=== PATIENT | male | born 1940 | race Caucasian/White ===

== ENCOUNTER → 2016-11-18 08:34 | Outpatient (CLI) | payer MEDICARE, OTHER ==
--- NOTE | ~2016-11-18 | EEG ---
PATIENT:ESTHER BRANHAM DATE OF SERVICE: 11/18/16 MEDICAL RECORD: [id number] DATE OF : 42 LOCATION: [facility] ADMISSION DATE: 11/18/16 REFERRING PHYSICIAN: INTERPRETING PHYSICIAN: NERY MISTRY MD DATE OF SERVICE: 11/18/2016 REFERRED BY: Dr. Lee as an outpatient. ELECTROENCEPHALOGRAM NUMBER: [id number]. DATE OF EXAMINATION: 11/18/2016 at 11:10 a.m. TECHNICAL DATA: This electroencephalographic recording consists of approximately 20 minutes of data collection utilizing the international 10/20 system of electrode placement and both referential and non-referential montages. Sixteen channels of electrocerebral recording are accompanied by a 17th channel dedicated to the electrocardiographic rhythm and 2 channels of electromyographic recording. Recording is performed in the awake and drowsy states utilizing activation by photic stimulation. ELECTROENCEPHALOGRAPHIC DATA: The awake state comprises approximately 70% of the recorded electrocerebral activity. Electromyographic artifact is prominent and rapid eye movements are seen. The posterior dominant background consists of a well-developed, symmetric, rhythmic, waxing and waning alpha activity of 7-8 Hz, which is suppressed by eye opening. The drowsy state comprises the remaining portion of the recorded electrocerebral activity. Electromyographic artifact is diminished and rapid eye movements are not seen. The posterior dominant background is occasionally relatively suppressed. No abnormal or focal slowing is identified. No epileptiform discharges are seen. Photic stimulation induces no abnormal change in the recorded electrocerebral activity. INTERPRETATION: Normal (awake and drowsy). This is a normal electroencephalographic recording. TRANSINT:[id number] Voice Confirmation ID: [id number] DOCUMENT ID: [id number] NERY MISTRY MD CC: [id number] DICTATION DATE: 11/19/16 1146 HAND OUTSIDE CUTTER: 11/19/168 DEP CLI 11/18/16 [facility] [address] [place] [address]
== END | disposition home or self-care (01) ==
LOC: D.CN 10-21 09:00 → D.ECHO 10-21 09:30 → D.CN 10-21 10:00 → D.US 10-21 11:00 → D.CT 10-21 11:30 → D.CN 08:34
DX: G40.101 Localization-related (focal) (partial) symptomatic epilepsy and epileptic syndromes with simple partial seizures, not intractable, with status epilepticus (principal); G45.9 Transient cerebral ischemic attack, unspecified; I48.91 Unspecified atrial fibrillation; R94.31 Abnormal electrocardiogram [ECG] [EKG]

== ENCOUNTER → 2016-12-09 09:30 | Outpatient (CLI) | payer MEDICARE, OTHER | END | disposition home or self-care (01) | LOC: D.CT 09:30 | DX: I48.91 Unspecified atrial fibrillation (principal); I65.29 Occlusion and stenosis of unspecified carotid artery ==

== ENCOUNTER → 2016-12-30 08:25 | Outpatient (CLI) | payer MEDICARE, OTHER ==
--- NOTE | ~2016-12-30 | EC ---
PATIENT:ESTHER BRANHAM DATE OF SERVICE: 12/30/16 SEX: M MEDICAL RECORD: [id number] DATE OF : 42 LOCATION:D[facility] AGE OF PATIENT: 76 ADMISSION DATE: 12/30/16 REFERRING PHYSICIAN: INTERPRETING PHYSICIAN: MARIANNA MCLEOD MD ECHOCARDIOGRAM REPORT ECHO CHARGES 4 ECHO COMPLETE CLINICAL DIAGNOSIS: CHEST PAIN HX OF AFIB ECHOCARDIOGRAPHIC MEASUREMENTS (adult normal given) AC root (d.<3.7cm) 3.7 cm LV Septum d (<1.2 cm> 1.7 cm Valve Excursion 1.8 cm LV Septum (systole) 1.9 cm Left Atria (s.<4.0cm> 4.1 cm LVPW d(<1.2cm) 1.2 cm RV (d.<2.3cm) 4.6 cm LVPW (sytole) 16 cm LV diastole(<5.6CM) 5.3 cm MV E-F(>70mm/sec) cm LV systole 3.4 cm LVOT Diameter 1.9 cm MV exc.(>10mm) 2.1 cm Est.ejection fraction (50-75%) % Pericardial Effusion N DOPPLER: LVIT cm/sec A 37.0 cm/sec E 99.0 cm/sec LA cm/sec RVSP 34 mmHg LVOT 92 cm/sec AOP1/2T m/s Asc. Ao 125 cm/sec RVOT 78 cm/sec RA cm/sec PA 102 cm/sec AV Gradient Peak 6.24 mmHg AV Mean 3.48 mmHg AV Area 2.3 cm MV Gradient Peak 4.45 mmHg MV Mean 2.19 mmHg MV Area cm COMMENTS: Practice Director: 2 SAI LING Hardware Installation Coordinator: 4 Dr. Mcleod TAPE# PACS DATE OF SERVICE: 12/30/2016 PROCEDURE: Transthoracic echocardiogram. FINDINGS: 1. The left ventricle shows mild concentric left ventricular hypertrophy. The overall ejection fraction is 60%. There is no regional wall motion abnormality. 2. The right ventricle is moderate to severely dilated; however, it appears to have normal function. 3. The left atrium is mildly dilated. ECHOCARDIOGRAM REPORT [id number] ESTHER BRANHAM 4. The mitral valve is shown to be structurally normal with mild mitral regurgitation. Inflow characteristics are unable to be calculated because of the patient's presence of atrial fibrillation. 5. The tricuspid valve has mild tricuspid regurgitation. The right ventricular systolic pressure is normal. 6. The IVC is shown to be normal in size and collapses appropriately, indicating likely normal central venous pressure. 7. The right atrium is moderately to severely dilated. 8. The aortic root is a normal trileaflet structure. 9. The pericardium is normal. CONCLUSION: The patient has evidence of mild hypertensive heart disease. The patient is in atrial fibrillation and has mild enlargement of the right-sided structures. TRANSINT:[id number] Voice Confirmation ID: [id number] DOCUMENT ID: [id number] MARIANNA MCLEOD MD CC: [id number] DICTATION DATE: 12/30/16 1541 TRIMMER OPERATOR: 12/30/16 1938 [facility] [address] [place] [address]
== END | disposition home or self-care (01) ==
LOC: D.ECHO 08:25
DX: R07.9 Chest pain, unspecified (principal); I48.2 Chronic atrial fibrillation; G45.9 Transient cerebral ischemic attack, unspecified

== ENCOUNTER 2017-01-21 06:36 | Outpatient (CLI) | payer MEDICARE, OTHER ==
--- NOTE | ~2017-01-21 | HEMODYNAMI ---
PATIENT:ESTHER BRANHAM MEDICAL RECORD: [id number] : 42 LOCATION:[facility] ADMISSION DATE: 01/21/17 Generatedon:01/21/20179:15 Patient name: ESTHER BRANHAM Patient #: [id number] SSN: : Date of study: 01/21/2017 Page: Of Hemodynamic Procedure Report Patient Data Patient Demographics Procedure consent was obtained First Name: ESTHER Gender: Male Last Name: YONAS : 1940 Middle Initial: A Age: 76 year(s) Patient #: [id number] Race: Unknown Additional ID: [id number] Contact details [address]: [address] [place] [address] State: [place] City: [place] Zip code: [address] Past Medical History Allergies Allergen Reaction Date Comments Reported Other allergy 01/21/2017 [facility] Admission Admission Data Admission Date: 01/21/2017 Admission Time: 6:36 Admit Source: Other Lab Results Lab Result Date: 01/21/2017 Lab Result Time: 7:00 Biochemistry Name Units Result Min Max BUN mg/dl 19 --(----)*- 7 18 Creatinine mg/dl 1.4 --(----)*- 0.6 1.3 CBC Name Units Result Min Max Hematocrit % 50.8 --(--*-)-- 42 54 Hemoglobin g/dl 17.1 --(---*)-- 13.5 17.5 Procedure Procedure Types Cath Procedure Diagnostic Procedure LHC LHC w/Coronaries PCI Procedure Coronary Stent Initial Miscellaneous Procedures Moderate Sedation up to 30 minutes Procedure Description Procedure Date Procedure Date: 01/21/2017 Procedure Start Time: 8:41 Procedure End Time: 9:12 Procedure Staff Name Function Rodger Mcleod MD Performing Physician Irena Swenson RT Scrub Liv Richard RN Nurse Seth Dacosta RT Monitor Procedure Data Cath Procedure Fluoroscopy Diagnostic fluoroscopy Total fluoroscopy Time: time: 10.8 min 10.8 min Diagnostic fluoroscopy Total fluoroscopy dose: dose: 477.54 mGy 477.54 mGy Contrast Material Contrast Material Type Amount (ml) Isovue 300 126 Entry Location Entry Primary Successful Side Size Upsize Upsize Entry Closure Cabrera ccessful Closure Location (Fr) 1 (Fr) 2 (Fr) Remarks Device Remarks Radial Right 6 Fr Mechanical artery Short Compression Estimated blood loss: 10 ml Diagnostic catheters Device Type Used For End Catheter Placement Diagnostic Infinity 5Fr Procedure AR MOD Catheter Procedure Complications No complications Procedure Medications Medication Administration Route Dosage Oxygen NC 2 l/min Lidocaine 2% added to field 20 Heparin Flush Bag added to field 2 bags (1000units/500ml NS) 0.9% NaCl I.V. 100 ml/hr Radial Cocktail added to field 1 syringe (Verapomil 2mg/Nitro 400mcg/Heparin 1500units) Versed I.V. 1 mg Fentanyl I.V. 50 mcg Radial Cocktail I.A. 1 syringe (Verapomil 2mg/Nitro 400mcg/Heparin 1500units) Angiomax (bolus) I.V. 13.5 ml Angiomax Drip I.V. drip 31.9 ml/hr (250mg/50ml NS) (Standard) Plavix P.O. 300 mg Angiomax Drip 31.9 ml/hr (250mg/50ml NS) (Standard) Hemodynamics Rest HGB: 17.1 (g/dl) Heart Rate: 71 (bpm) Pressure Samples Time Site Value (mmHg) Purpose Heart Use Rate(bpm) 8:51 LV 136/1,14 EDP 80 8:52 AO 123/79(99) Pullback 73 8:52 LV 114/15,16 Pullback 73 Gradients Valve Time Site 1 Site 2 Mean SEP/DFP Peak To Heart Use (mmHg) (sec/min) Peak Rate (mmHg) (bpm) Aortic 8:52 LV AO 0 12 0 73 114/15,16 123/79(99) Calculations Valve P-P Mean Valve Index Valve Source Name Gradient Area Flow (cm2) Aortic 0 0 0 0 Snapshots Pre Cath Intra NCS Post Cath Vital Signs Time Heart Resp SPO2 etCO2 NIBP (mmHg) Rhythm Pain Sedation Rate (ipm) (%) (mmHg) Status Level (bpm) 8:34:32 74 22 100 29.4 147/96(131) A-Fib 0 (11) 10(A) , No pain 8:38:56 72 17 98 30.2 147/98(128) A-Fib 0 (11) 10(A) , No pain 8:43:16 75 15 96 13.5 133/78(108) A-Fib 0 (11) 10(A) , No pain 8:47:38 74 16 95 0 119/79(97) A-Fib 0 (11) 9(A) , No pain 8:52:00 70 15 96 0 129/80(107) A-Fib 0 (11) 9(A) , No pain 8:56:20 71 15 96 0 132/83(98) A-Fib 0 (11) 9(A) , No pain 9:00:34 76 16 96 0 130/82(122) A-Fib 0 (11) 9(A) , No pain 9:04:48 70 15 97 21.9 132/85(107) A-Fib 0 (11) 9(A) , No pain 9:09:07 64 16 97 34 146/81(124) A-Fib 0 (11) 10(A) , No pain Medications Time Medication Route Dose Verified Delivered Reason Notes Effectiveness by by 8:32:41 Oxygen NC 2 l/min Rodger Buffie used for Shani Richard RN procedure 8:32:48 Lidocaine 2% added to field 20ml Rodger Rodger for local vial Shani Mcleod MD anesthetic 8:32:55 Heparin Flush added to field 2 bags Rodger Rodger used for Bag Shani Mcleod MD procedure (1000units/500ml NS) 8:33:06 0.9% NaCl I.V. 100 Rodger Buffie Per physic afshin ml/hr Shani Richard RN, MD 8:33:33 Radial Cocktail added to field 1 Rodger Buffie for (Verapomil syringe Shani Richard RN vasodilation 2mg/Nitro MD 400mcg/Heparin 1500units) 8:39:51 Versed I.V. 1 mg Rodger Buffie for sedati on Shani Richard RN, MD 8:39:57 Fentanyl I.V. 50 mcg Rodger Buffie for sedati on Shani Richard RN, MD 8:42:39 Radial Cocktail I.A. 1 Rodger Rodger for (Verapomil syringe Shani Mcleod MD vasodilation 2mg/Nitro MD 400mcg/Heparin 1500units) 9:02:27 Angiomax (bolus) I.V. 13.5 ml Rodger Buffie for Shani Richard RN anticoagulation 9:04:07 Angiomax Drip I.V. drip 31.9 Rodger Buffie for (250mg/50ml NS) ml/hr Shani Richard RN anticoagulation (Standard) 9:12:57 Plavix P.O. 300 mg Rodger Buffie for Shani Richard RN antiplatelet MD therapy 9:13:09 Angiomax Drip I.V. 31.9 Rodger Buffie for (250mg/50ml NS) drip-discontinued ml/hr Shani Richard RN anticoagulation (Standard) Procedure Log Time Note 8:16:13 Admit Source: Other 8:16:14 Diagnostic Cath status Elective 8:16:16 Irena Counts RT(R) sent for patient. Start room use. 8:16:17 Time tracking: Regular hours 8:16:20 Plan of Care:Hemodynamics will remain stable., Cardiac rhythm will remain stable., Comfort level will be maintained., Respiratory function will remain adequate., Patient/ family verbilizes understanding of procedure., Procedure tolerated without complication., Recovers from procedure without complications.. 8:16:36 H&P Date Dictated: 01/15/2017 Within 30 days and on chart., H&P Addendum completed by physician on day of procedure. (MUST COMPLETE FOR ALL OUTPATIENTS). 8:17:52 Lab Result : BUN 19 mg/dl 8:17:52 Lab Result : Creatinine 1.4 mg/dl 8:17:52 Lab Result : Hemoglobin 17.1 g/dl 8:17:52 Lab Result : Hematocrit 50.8 % 8:17:55 Lab results completed and on chart. 8:18:05 Patient received from Pre/Post Procedure Room to CCL 3 Alert and oriented. Tansferred to table in Supine position. 8:18:06 Warm blankets applied, and tori hugger turned on for patient comfort. 8:18:07 Correct patient and procedure confirmed by team. 8:18:08 Signed procedure consent form obtained from patient. 8:18:09 ECG and BP/O2 sat monitors applied to patient. 8:18:10 Pre-procedure instructions explained to patient. 8:18:11 Pre-op teaching completed and patient verbalized understanding. 8:18:12 Family in waiting room. 8:18:13 Patient NPO since Midnight. 8:32:41 Oxygen 2 l/min NC was administered by Liv Richard RN; used for procedure; 8:32:48 Lidocaine 2% 20ml vial added to field was administered by Rodger Mcleod MD; for local anesthetic; 8:32:55 Heparin Flush Bag (1000units/500ml NS) 2 bags added to field was administered by Rodger Mcleod MD; used for procedure; 8:33:06 0.9% NaCl 100 ml/hr I.V. was administered by Liv Richard RN; Per physician; 8:33:10 Vital chart was started 8:33:33 Radial Cocktail (Verapomil 2mg/Nitro 400mcg/Heparin 1500units) 1 syringe added to field was administered by Liv Richard RN; for vasodilation; 8:37:42 Patient allergic to Other allergyNKDA 8:37:44 Is the patient allergic to Iodine/contrast media? No. 8:37:45 Is patient on blood thinner?Yes 8:37:47 ACC The patient was administered the following blood thiners within the last 24 hours: ACCPlavix 8:37:53 Patient diabetic? No. 8:37:55 Previous problem with sedation/anesthesia? No ? 8:37:56 Snore? Yes 8:37:56 Sleep apnea? No 8:37:57 Deviated septum? No 8:37:58 Opens mouth fully? Yes 8:37:58 Sticks out tongue? Yes 8:38:00 Airway obstruction? No ? 8:38:01 Dentures? No ? 8:38:04 Modified Travis's test Ulnar < 7 seconds 8:38:06 Patient pain scale 0/10 ?. 8:38:09 IV patent on arrival in left forearm with 0.9% NaCl at O. 8:38:13 Right Radial & Right Groin area was prepped with chlora-prep and draped in sterile fashion 8:38:14 Alarms reviewed by R. N. 8:38:14 Sharps counted by scrub and verified by R.N. 8:38:18 Use device set Radial Dx 8:38:19 Tegaderm 4 x 4 opened to sterile field. 8:38:20 Acist Manifold opened to sterile field. 8:38:20 Acist Hand Control opened to sterile field. 8:38:21 Acist Syringe opened to sterile field. 8:38:21 Medline Cath Pack opened to sterile field. 8:38:22 Bag Decanter opened to sterile field. 8:38:22 Terumo 6Fr Slender Glidesheath opened to sterile field. 8:38:22 St Peter 260cm J .035 wire opened to sterile field. 8:38:27 Baseline sample Acquired. 8:38:30 Physician arrived 8:38:30 --------ALL STOP TIME OUT------ 8:38:30 Final Timeout: patient, procedure, and site verified with staff and physician. All members of the team are in agreement. 8:38:32 Right Radial & Right Groin site verified by team. 8:38:33 Physical assessment completed. ASA score P 2 - A patient with mild systemic disease as per Rodger Mcleod MD. 8:38:36 Sedation plan: IV Moderate Sedation Versed, Fentanyl 8:39:51 Versed 1 mg I.V. was administered by Liv Richard RN; for sedation; 8:39:57 Fentanyl 50 mcg I.V. was administered by Liv Richard RN; for sedation; 8:41:09 Zero performed for pressure channel P1 8:41:26 Rhythm: atrial fibrillation 8:41:33 Procedure started. 8:41:33 Full Disclosure recording started 8:41:37 Local anesthetic to right radial artery with Lidocaine 2% by Rodger Mcleod MD.INITIAL ACCESS ONLY 8:41:44 A 6 Fr Short sheath was inserted into the Right Radial artery 8:42:39 Radial Cocktail (Verapomil 2mg/Nitro 400mcg/Heparin 1500units) 1 syringe I.A. was administered by Rodger Mcleod MD; for vasodilation; 8:43:29 St Peter 260cm J .035 wire opened to sterile field. 8:44:24 LCA angiography performed. 8:51:18 LV hemodynamics recorded. 8:51:19 LV gram done using POLLACK 8:51:21 Injector settings: Ml/sec: 5, Volume: 10, 8:52:39 EF : 65 % 8:54:01 Catheter exchanged over wire. 8:54:04 A Diagnostic Infinity 5Fr AR MOD Catheter was advanced over the wire and used for Procedure. 8:56:02 RCA angiography performed. 8:59:03 Catheter removed. 8:59:15 Medtronic Launcher 6Fr EBU 3.5 guide catheter opened to sterile field. 8:59:52 Copilot Bleedback Control Valve opened to sterile field. 8:59:53 [place] LiveOps Choice PT Extra Support 182cm wire opened to sterile field. 8:59:53 Merit BasixCompak Inflation Kit opened to sterile field. 9:00:05 6 Fr ebu 3.5 guide catheter was inserted over the wire 9:02:27 Angiomax (bolus) 13.5 ml I.V. was administered by Liv Richard RN; for anticoagulation; 9:02:31 PT ES wire advanced. 9:04:03 Wire advanced across lesion. 9:04:07 Angiomax Drip (250mg/50ml NS) (Standard) 31.9 ml/hr I.V. drip was administered by Liv Richard RN; for anticoagulation; 9:06:11 Inflation Number: 1 A Daniele RX 3.5 x 26 stent was prepped and advanced across the Mid LAD. The stent was deployed at 14 ASHA for 0:10 (min:sec). 9:07:27 Stent catheter was removed intact over wire. 9:07:27 Wire removed. 9:07:28 Guide catheter removed. 9:07:35 Terumo TR Band Large opened to sterile field. 9:07:43 Sheath removed intact; hemostasis achieved with Mechanical Compression to the Right Radial artery. 9:07:46 Procedure ended.(Physican Out) 9:10:29 Fluoroscopy time 10.80 minutes. 9:10:35 Flurop Dose total: 477.54 9:10:35 Fluoroscopy dose: 477.54 mGy 9:10:39 Contrast amount:Isovue 300 126ml. 9:10:40 Sharps counted by scrub and verified by R.N. 9:10:42 TR band inflated with 12cc of air. 9:10:43 Insertion/operative site no bleeding no hematoma. 9:10:47 Post Procedure Pulses reassessed and unchanged 9:10:49 Post-procedure physical assessment completed. ASA score P 2 - A patient with mild systemic disease as per Rodger Mcleod MD. 9:10:59 Post procedure rhythm: unchanged. 9:11:09 Estimated blood loss: 10 ml 9:11:10 Post procedure instruction explained to patient.Patient verbalizes understanding. 9:11:10 Patient needs reinforcement of post procedure teaching. 9:11:27 Procedure type changed to Cath procedure, Diagnostic procedure, LHC, LHC w/Coronaries, PCI procedure, Coronary Stent Initial, Miscellaneous Procedures, Moderate Sedation up to 30 minutes 9:11:54 Procedure and supply charges have been captured, reviewed, submitted and are correct. 9:11:57 Procedure Complication : No complications 9:11:58 Vital chart was stopped 9:11:59 See physician's report for complete and final results. 9:12:00 Report given to Pre/Post Procedure Room. 9:12:02 Patient transfered to Pre/Post Procedure Room with Stretcher. 9:12:04 Procedure ended. 9:12:04 Full Disclosure recording stopped 9:12:14 End room use (Document Last) 9:12:57 Plavix 300 mg P.O. was administered by Liv Richard RN; for antiplatelet therapy; 9:13:09 Angiomax Drip (250mg/50ml NS) (Standard) 31.9 ml/hr I.V. drip-discontinued was administered by Liv Rihcard RN; for anticoagulation; Intervention Summary Intervention Notes Time ActionType Lesion and Equipment Action# Pressure Duration Attributes Used 9:06:11 Place stent Mid LAD Daniele RX 1 14 00:10 3.5 x 26 stent Device Usage Item Name Manufacture Quantity Catalog Number [facility] Part Current [facility] Lot# / Charge Number Stock Stock Serial# Code Tegaderm 4 3M 1 [id number] [id number] 706297 5 x 4 Acist Acist 1 77724 647777 298924 710265 5 Manifold Medical Systems Inc Acist Hand Acist 1 50252 252375 681656 117650 5 Control Medical Systems Inc Acist Acist 1 99559 407192 303897 142615 20 Syringe Medical Systems Inc Medline Cardinal 1 [id number] 709775 45523 978529 5 Cath Pack Health Bag Microtek 1 2001S 713138 95548 681428 5 DecFloq. Terumo 6Fr Terumo 1 [id number] 986711 117941 881352 [address] [facility] [address] [facility] 2 037258 816800 195798 620589 30 260cm J .035 wire Diagnostic Cardinal 1 [id number] 622443 749399 188063 15 Screenleap Health 5Fr AR MOD Catheter Medtronic Medtronic 1 [id number] 537340 41347 270275 3 Launcher 6Fr EBU 3.5 guide catheter Copilot Chopra 1 [id number] 262126 354531 971745 5 Bleedback Vascular Control Valve [place] Sci [place] 1 [id number] 519884 895887 463050 5 Choice PT Scientific Extra Support 182cm wire Merit Merit 1 [id number] 710976 742321 294378 15 [employer] Medical Inflation Kit Gracey RX 3.5 Medtronic 1 [id number] 899230 2703093 596909 5 [id number] x 26 stent Terumo TR Terumo 1 [id number] 724748 176843 497452 40 Band Large Signature Audit Alexander Stage Time Signature Unsigned Intra-Procedure 01/21/2017 Seth Dacosta 9:15:01 AM RT(R) Signatures Monitor : Seth Dacosta RT Signature : Date : Time : [place] [id number] SAUMYA CORTEZ, TAMMY [address]
[2017-01-21] MEDS ORDERED: FARXIGA10 MG PO (06:47)
[2017-01-21] MEDS ORDERED: BAYER CHEWABLE81 MG PO (06:48)
[2017-01-21] MEDS ORDERED: ELIQUIS2.5 MG PO (06:48)
[2017-01-21 06:59] VITALS: BP 181/97; BMI 28.7
[2017-01-21 08:00] LABS: ANION GAP 16.2 mmol/L (8-16); CALCIUM 9.2 mg/dL (8.5-10.1); CARBON DIOXIDE 24.7 mmol/L (21.0-32.0); CREATININE - SERUM 1.4 mg/dL (0.6-1.3); POTASSIUM - SERUM 3.9 mmol/L (3.5-5.1)
[2017-01-21 08:09] LABS: EOSINOPHILS 1.7 % (0-7); HEMATOCRIT 50.8 % (42.0-54.0); HEMOGLOBIN 17.1 g/dL (13.5-17.5); IMMATURE GRANULOCYTES 0.3 % (0-5); LYMPHOCYTES 18.9 % (15-50); MCH 30.6 pg (26.0-34.0); MCHC 33.7 g/dL (31.0-37.0); MEAN PLATELET VOLUME 9.6 fL (7.4-10.4); MONOCYTES 12.1 % (2-11); PLATELET COUNT 279 10x3/uL (130-400); RBC 5.58 10x6/uL (4.20-6.10); RDW 13.1 % (11.5-14.5); WBC 6.3 10x3/uL (4.8-10.8)
--- NOTE | 2017-01-21 09:40 | NUR ---
2L NC, NO RESP DISTRESS. RIGHT WRIST TR BAND CDI, NO BLEEDING OR HEMATOMA NOTED. NO C/O NAUSEA OR CHEST PAIN. VSS. AT BEDSIDE, CALL LIGHT WITHIN REACH.
[2017-01-21] MEDS ORDERED: PLAVIX75 MG PO (09:55)
--- NOTE | 2017-01-21 10:10 | NUR ---
2L NC, NO RESP DISTRESS. RIGHT WRIST TR BAND CDI, NO BLEEDING OR HEMATOMA NOTED. NO C/O PAIN OR NAUSEA. SANDWICH TRAY AND DRINK GIVEN. AT BEDSIDE, CALL LIGHT WITHIN REACH.
--- NOTE | 2017-01-21 10:25 | NUR ---
RESTING QUIETLY WITH EYES CLOSED. RIGHT WRIST TR BAND CDI, NO BLEEDING OR HEMATOMA NOTED. NO C/O PAIN OR NAUSEA. 2L NC, NO RESP DISTRESS NOTED. VSS. WILL CONTINUE TO MONITOR.
--- NOTE | 2017-01-21 10:44 | NUR ---
1040 PT DENIES ANY C/O CHEST PAIN OR NAUSEA. HAS KATHARINE SANDWICH AND PO FLUIDS. TR BAND IS CDI, NO BLEEDING OR HEMATOMA NOTED. A-FIB WITH RATE OF 76. FAMILY AT BEDSIDE, CALL LIGHT IS IN REACH. PT DENIES NEEDS AT THIS TIME.
--- NOTE | 2017-01-21 11:40 | NUR ---
1140 PT HAS VOIDED 600 CC CLEAR YELLOW URINE USING URINAL. DENIES ANY C/O AT THIS TIME. TR BAND CDI, NO BLEEDING OR HEMATOMA NOTED.
--- NOTE | 2017-01-21 12:09 | NUR ---
PT DENIES ANY C/O. NO BLEEDING OR HEMATOMA NOTED AT CATH SITE. A-FIB WITH RATE OF 64. PT DENIES ANY C/O CHEST DISCOMFORT FAMILY AT BEDSIDE, CALL LIGHT IN REACH.
--- NOTE | 2017-01-21 12:30 | NUR ---
1230 3 CC OF AIR REMOVED FROM TR BAND WITH OOZING NOTED AT SITE. AIR RE-INSTILLED AND OOZING STOPPED. WILL CONTINUE TO MONITOR. PT DENIES ANY C/O AT THIS TIME. AT BEDSIDE, CALL LIGHT IN REACH.
--- NOTE | 2017-01-21 13:15 | NUR ---
1310 3 CC OF IAR REMOVED FROM TR BAND WITH NO BLEEDING NOTED.
--- NOTE | 2017-01-21 14:16 | NUR ---
1330 2 CC OF AIR REMOVED FROM TR BAND WITH OOZING, 2CC REINSTILLED AND OOZING STOPPED. PT DENIES ANY C/O AT THIS TIME. CALL LIGHT IN REACH, FAMILY AT BEDSIDE.
--- NOTE | 2017-01-21 14:27 | NUR ---
1410 3 CC OF AIR REMOVED FROM TR BAND WITH NO BLEEDING NOTED, WILL CONTINUE TO MONITOR. PT DENIES ANY C/O. CALL LIGHT IN REACH.
--- NOTE | 2017-01-21 14:38 | NUR ---
1430 3 CC OF AIR REMOVED FROM TR BAND WITH NO BLEEDING OR HEMATOMA NOTED. PT DENIES ANY C/O. ATRIAL FIBRILLATION PER MONITOR WITH RATE OF 76. DENIES ANY C/O CHEST PAIN.
--- NOTE | 2017-01-21 14:45 | NUR ---
1445 3 CC OF AIR REMOVED FROM TR BAND WITH NO BLEEDING OR HEMATOMA NOTED. PT DENIES ANY C/O. IV DC'D WITH CATH INTACT. PT DRESSING FOR DC TO HOME WITH ASSIST FROM
--- NOTE | 2017-01-21 15:21 | NUR ---
1510 2X2 AND TEGADERM CDI TO RIGHT WRIST, NO BLEEDING OR HEMATOMA NOTED. WRIST IMMOBILIZER IN PLACE. PT DENIES ANY C/O. HAS AMBULATED TO THE BATHROOM AND VOIDED QS. PT ESCORTED TO PRIVATE AUTO VIA WC BY NURSE WTIH DRIVING HIM HOME. DC INSTRUCTIONS HAVE BEEN REVIEWED AND COPIES PROVIDED TO PT WELL STENT CARD, HOMECARE BOOKLET AND PLAVIX PRESCRIPTION.
== END 2017-01-21 15:10 | disposition home or self-care (01) ==
LOC: D.CATH 06:36
PROVIDERS: Internal Medicine Cardiovascular Disease
DX: I25.119 Atherosclerotic heart disease of native coronary artery with unspecified angina pectoris (principal); R94.39 Abnormal result of other cardiovascular function study; Z01.812 Encounter for preprocedural laboratory examination
CPT/HCPCS: 93458; C9600

== ENCOUNTER → 2017-01-27 19:06 | Outpatient (CLI) | payer MEDICARE, OTHER ==
[2017-01-21 06:59] VITALS: BMI 28.7
[~2017-01-27 19:06] MED LIST: BAYER CHEWABLE81 MG PO; ELIQUIS2.5 MG PO; FARXIGA10 MG PO; PLAVIX75 MG PO
== END | disposition home or self-care (01) ==
LOC: D.SLEEP 19:06
DX: G47.30 Sleep apnea, unspecified (principal)

== ENCOUNTER → 2017-02-04 08:41 | Outpatient (CLI) | payer MEDICARE, OTHER ==
[2017-02-04 10:15] VITALS: BMI 28.8
== END ==
LOC: D.FANS 08:41
DX: E11.9 Type 2 diabetes mellitus without complications (principal); E78.2 Mixed hyperlipidemia; G40.109 Localization-related (focal) (partial) symptomatic epilepsy and epileptic syndromes with simple partial seizures, not intractable, without status epilepticus

== ENCOUNTER → 2017-03-18 17:38 | Outpatient (CLI) | payer MEDICARE, OTHER ==
[2017-02-04 10:15] VITALS: BMI 28.8
[2017-03-18 18:47] LABS: ANION GAP 10.9 mmol/L (8-16); CARBON DIOXIDE 27.6 mmol/L (21.0-32.0); CHOL - HDL RATIO 2.3 ratio (2.3-4.9); CREATININE - SERUM 1.3 mg/dL (0.6-1.3); POTASSIUM - SERUM 4.5 mmol/L (3.5-5.1)
== END | disposition home or self-care (01) ==
LOC: D.LABREF 17:38
PROVIDERS: Internal Medicine Cardiovascular Disease
DX: E78.5 Hyperlipidemia, unspecified (principal)

== ENCOUNTER → 2017-10-14 16:54 | Outpatient (CLI) | payer MEDICARE, OTHER ==
[2017-02-04 10:15] VITALS: BMI 28.8
[2017-10-14 17:23] LABS: CHOL - HDL RATIO 2.2 ratio (2.3-4.9)
== END | disposition home or self-care (01) ==
LOC: D.LABREF 16:54
PROVIDERS: Internal Medicine Cardiovascular Disease
DX: E78.5 Hyperlipidemia, unspecified (principal)

== ENCOUNTER → 2017-11-11 19:24 | Outpatient (CLI) | payer MEDICARE, OTHER ==
[2017-02-04 10:15] VITALS: BMI 28.8
== END | disposition home or self-care (01) ==
LOC: D.SLEEP 19:24
DX: G47.30 Sleep apnea, unspecified (principal); Z01.812 Encounter for preprocedural laboratory examination

== ENCOUNTER 2018-12-20 10:56 | Inpatient (IN) | payer MEDICARE, OTHER ==
[~2018-12-20] VITALS: Ht 177.8 cm; Wt 88.6 kg
--- NOTE | ~2018-12-20 | HEMODYNAMI ---
PATIENT:ESTHER BRANHAM MEDICAL RECORD: [id number] : 42 LOCATION:D.CAT ADMISSION DATE: 12/20/18 Generatedon:12/20/201813:10 Patient name: ESTHER BRANHAM Patient #: [id number] SSN: : 1940 Date of study: 12/20/2018 Page: Of Hemodynamic Procedure Report Patient Data Patient Demographics Procedure consent was obtained First Name: ESTHER Gender: Male Last Name: YONAS : 1940 Middle Initial: A Age: 78 year(s) Patient #: [id number] Race: Unknown Additional ID: [id number] Contact details Address: [address] [place] [address] State: [place] City: [place] Zip code: [address] Past Medical History Allergies Allergen Reaction Date Comments Reported Other allergy 01/21/2017 [facility] Admission Admission Data Admission Date: 12/20/2018 Admission Time: 10:56 Procedure Procedure Types Cath Procedure Diagnostic Procedure Cardioversion External Procedure Description Procedure Date Procedure Date: 12/20/2018 Procedure Start Time: 12:51 Procedure End Time: 13:09 Procedure Staff Name Function Marcelo Guzman MD Performing Physician Richard Casetllanos RT Monitor Tee Whittaker RN Nurse Matt Durbin CRNA Additional personnel Procedure Data Cath Procedure Fluoroscopy Diagnostic fluoroscopy Total fluoroscopy Time: 0 time: 0 min min Diagnostic fluoroscopy Total fluoroscopy dose: 0 dose: 0 mGy mGy Contrast Material Contrast Material Type Amount (ml) Isovue 300 0 Estimated blood loss: 0 ml Procedure Complications No complications Hemodynamics Rest Heart Rate: 47 (bpm) Snapshots Pre Cath Intra NCS Post Cath Vital Signs Time Heart Resp SPO2 etCO2 NIBP (mmHg) Rhythm Pain Sedation Rate (ipm) (%) (mmHg) Status Level (bpm) 12:47:53 50 14 100 26.3 159/92(118) NSR (Missing) 10(A) 12:52:52 34 14 99 0 Measuring NSR (Missing) 10(A) 12:53:39 36 15 97 29.3 102/64(74) NSR (Missing) 10(A) 12:58:38 36 15 99 28.5 Measuring NSR (Missing) 10(A) 12:59:56 41 17 98 28.5 97/59(75) NSR (Missing) 10(A) 13:03:58 38 19 98 23.3 106/61(86) NSR (Missing) 10(A) 13:08:04 40 9 99 0 100/61(71) NSR (Missing) 10(A) Procedure Log Time Note 12:33:19 Tee Whittaker RN sent for patient. Start room use. 12:33:21 Time tracking: Regular hours (M-F 7:00 - 5:00) 12:33:25 Plan of Care:Hemodynamics will remain stable., Cardiac rhythm will remain stable., Comfort level will be maintained., Respiratory function will remain adequate., Patient/ family verbilizes understanding of procedure., Procedure tolerated without complication., Recovers from procedure without complications.. 12:41:15 Patient arrived from Pre/Post Procedure Room to [facility] 3. Patient remains on bed/stretcher for procedure. 12:41:18 Signed procedure consent form obtained from patient. 12:41:20 Warm blankets applied, and tori hugger turned on for patient comfort. 12:41:20 Correct patient and procedure confirmed by team. 12:41:21 ECG and BP/O2 sat monitors applied to patient. 12:41:25 Matt Durbin CRNA present and monitoring patient for TIVA. 12:41:27 Quick combo pads placed on patients chest and back. 12:41:34 Quick Combo opened to sterile field. 12:46:45 Vital chart was started 12:46:46 Baseline sample Acquired. 12:46:52 Rhythm: atrial fibrillation 12:46:57 Full Disclosure recording started 12:47:06 H&P Date Dictated: 12/09/2018 Within 30 days and on chart., H&P Addendum completed by physician on day of procedure. (MUST COMPLETE FOR ALL OUTPATIENTS). 12:47:08 Pre-procedure instructions explained to patient. 12:47:09 Pre-op teaching completed and patient verbalized understanding. 12:47:11 Family in patients room. 12:47:12 Patient NPO since Midnight. 12:47:14 Is the patient allergic to Iodine/contrast media? No. 12:47:16 Is patient on blood thinner?Yes 12:47:28 ACC The patient was administered the following blood thiners within the last 24 hours: Eliquis 12:47:31 Patient diabetic? Yes. 12:47:32 If diabetic: On Metformin? Yes 12:47:34 If on Metformin: Last Dose? 12/20/2018 12:47:36 Previous problem with sedation/anesthesia? No ? 12:47:38 Snore? Yes 12:47:42 Sleep apnea? Yes 12:47:43 Deviated septum? No 12:47:44 Opens mouth fully? Yes 12:47:45 Sticks out tongue? Yes 12:47:46 Airway obstruction? No ? 12:47:48 Dentures? No ? 12:47:52 Patient pain scale 0/10 ?. 12:47:57 IV patent on arrival in left forearm with 0.9% NaCl at O. 12:47:59 Lab results completed and on chart. 12:48:01 Alarms reviewed by Yossi Espinoza 12:50:51 --------ALL STOP TIME OUT------ 12:50:51 Final Timeout: patient, procedure, and site verified with staff and physician. All members of the team are in agreement. 12:51:02 Fire Safety Assessment: E--There are other possible contributors. 12:51:05 Physical assessment completed. ASA score P 3 - A patient with severe systemic disease as per Marcelo Guzman MD. 12:51:08 Sedation plan: TIVA Medication:Propofol 12:51:15 Procedure started. 12:52:55 Defibrillator synced and charged to 200 Joules. 12:52:57 Shock delivered. 12:52:59 Patient cardioverted to sinus bradycardia. 12:53:12 Procedure ended.(Physican Out) 12:53:40 Fluoroscopy time 00.00 minutes. 12:53:41 Fluoroscopy dose: 0 mGy 12:53:41 Flurop Dose total: 0 12:53:46 Dose Area Product 0 mGy/cm. 12:53:50 Contrast amount:Isovue 300 0ml. 12:55:19 Post-procedure physical assessment completed. ASA score P 3 - A patient with severe systemic disease as per Marcelo Guzman MD. 12:55:22 Post procedure rhythm: sinus bradycardia 12:55:24 Estimated blood loss: 0 ml 12:55:28 Post procedure instruction explained to patient.Patient verbalizes understanding. 12:55:29 Patient needs reinforcement of post procedure teaching. 12:55:45 Procedure and supply charges have been captured, reviewed, submitted and are correct. 12:55:48 Procedure Complication : No complications 13:09:32 Vital chart was stopped 13:09:33 See physician's report for complete and final results. 13:09:38 Report given to Pre/Post Procedure Room. 13:09:42 Patient transfered to Pre/Post Procedure Room with Stretcher. 13:09:45 Procedure ended. 13:09:45 Full Disclosure recording stopped 13:09:48 End room use (Document Last) Device Usage Item Manufacture Quantity Catalog Hospital Part Current Minimal Lot# / Name Number Charge Number Stock Stock Raquel wv# Code [facility] [employer] 1 [id number] Combo Signature Audit [place] Stage Time Signature Unsigned Intra-Procedure 12/20/2018 Richard Castellanos 1:10:08 PM RT(R) Signatures Performing Physician : Signature : Marcelo Guzman MD Date : Time : Monitor : Richard Castellanos RT Signature : Date : Time : Nurse : Tee Whittaker RN Signature : Date : Time : [address] [place] [address]
--- NOTE | ~2018-12-20 | HEMODYNAMI ---
PATIENT:ESTHER BRANHAM MEDICAL RECORD: [id number] : 42 LOCATION:[address] ADMISSION DATE: 12/20/18 Generatedon:12/21/201817:04 Patient name: ESTHER BRANHAM Patient #: [id number] SSN: : Date of study: 12/21/2018 Page: Of Hemodynamic Procedure Report Patient Data Patient Demographics Procedure consent was obtained First Name: ESTHER Gender: Male Last Name: YONAS : 1940 Middle Initial: A Age: 78 year(s) Patient #: [id number] Race: Unknown Additional ID: [id number] Contact details Address: [address] [place] [address] State: [place] City: [place] Zip code: [address] Past Medical History Allergies Allergen Reaction Date Comments Reported Other allergy 01/21/2017 [facility] Admission Admission Data Admission Date: 12/20/2018 Admission Time: 15:11 Room #: 2121 Insurance Payor: Medicare Height (in.): 177.8 BSA: 4.07 (m2) Height (cm.): 451.61 BMI: 4.36 (kg/m2) Weight (lbs.): 196.21 Weight (kg.): 89 Procedure Procedure Types Cath Procedure Diagnostic Procedure PPM/ICD PPM Dual Implant Procedure Description Procedure Date Procedure Date: 12/21/2018 Procedure Start Time: 16:46 Procedure End Time: 17:03 Procedure Staff Name Function Richard Castellanos RT Monitor Rocio Park RT Scrub Jessie Ferreira RN Nurse Clint Reddy MD Assisting physician Howard Laughlin MD Performing Physician Procedure Data Cath Procedure Fluoroscopy Diagnostic fluoroscopy Total fluoroscopy Time: 1 time: 1 min min Diagnostic fluoroscopy Total fluoroscopy dose: dose: 37.97 mGy 37.97 mGy Contrast Material Contrast Material Type Amount (ml) Isovue 300 0 Estimated blood loss: 5 ml Procedure Complications No complications Procedure Medications Medication Administration Route Dosage 0.9% NaCl I.V. 100 ml/hr Oxygen etCO2 Nasal cannula 2 l/min Lidocaine 1% added to field 20 Ancef (1Gm/50ml NS) I.V.P.B 1 g Ancef Irrigation Topical 1 g (1gm/500ml NS) Versed I.V. 2 mg Fentanyl I.V. 100 mcg Hemodynamics Rest BSA: 4.07 (m2) O2 Consumption: Estimated: 458.69 (ml/min) O2 Consumption indexed : Estimated:112.7 (ml/min/m) Heart Rate: 65 (bpm) Snapshots Pre Cath Intra NCS Post Cath Vital Signs Time Heart Resp SPO2 etCO2 NIBP (mmHg) Rhythm Pain Sedation Rate (ipm) (%) (mmHg) Status Level (bpm) 16:43:27 60 17 99 29.9 170/92(158) NSR 0 (11) 10(A) , No pain 16:47:48 65 16 98 22.9 134/90(113) NSR 0 (11) 10(A) , No pain 16:51:57 68 17 97 30.4 137/79(107) NSR 0 (11) 9(A) , No pain 16:56:07 79 15 98 38 142/83(115) Paced 0 (11) 9(A) , No pain 17:00:17 68 17 96 37 135/88(108) Paced 0 (11) 10(A) , No pain Medications Time Medication Route Dose Verified Delivered Reason Notes Effecti veness by by 16:45:59 0.9% NaCl I.V. 100 Howard Jessie used for ml/hr QianKolby Ferreira procedure MD SUGGS 16:46:08 Oxygen etCO2 2 Howard Jessie used for Nasal l/min St Kolby Ferreira procedure cannula MD SUGGS 16:46:19 Lidocaine added 20ml Clint Jaramillo for local 1% to vial Kwaku Reddy MD anesthetic field x 2 16:46:27 Ancef I.V.P.B 1 g Anabaptist Jessie used for (1Gm/50ml Kwaku Ferreira procedure NS) RN 16:46:34 Ancef Topical 1 g Anabaptist Anabaptist used for Irrigation Kwaku Reddy MD procedure (1gm/500ml NS) 16:46:45 Versed I.V. 2 mg Howard Jessie for QianKolby Ferreira sedation MD SUGGS 16:47:01 Fentanyl I.V. [address] m[address] Kolby Ferreira sedation MD automotive service director Log Time Note 16:05:11 Procedure Status Urgent Heart Cath (IP). 16:05:12 Time tracking: Regular hours (M-F 7:00 - 5:00) 16:05:16 Plan of Care:Hemodynamics will remain stable., Cardiac rhythm will remain stable., Comfort level will be maintained., Respiratory function will remain adequate., Patient/ family verbilizes understanding of procedure., Procedure tolerated without complication., Recovers from procedure without complications.. 16:05:28 Richard Castellanos RT(R) sent for patient. Start room use. 16:20:38 Medtronic guest services representative SELENA NEWELL present for procedure. 16:20:44 Use device set [id number] PPM 16:20:45 2-0 Ticron Multipack ([id number]) opened to sterile field. 16:20:45 3-0 Vicryl Single Pack [id number] opened to sterile field. 16:20:46 5-0 Monocryl PS2 [id number] opened to sterile field. 16:20:46 Cautery Tip Alteration Tailor opened to sterile field. 16:20:46 Cautery Pushbutton Pencil opened to sterile field. 16:20:48 Immobilizer Extra Large opened to sterile field. 16:20:49 Medtronic 4074-52 PPM Lead opened to sterile field. 16:20:50 Medtronic 4574-45 PPM Lead opened to sterile field. 16:20:[address] Generator [id number] opened to sterile field. 16:25:39 Patient Weight : 196.21 lbs 16:25:55 Patient Height : 177.8 inches 16:26:02 Insurance Payor : Medicare 16:29:00 Patient received from Med II to CCL 3 Alert and oriented. Tansferred to table in Supine position. 16:29:02 Signed procedure consent form obtained from patient. 16:29:03 Warm blankets applied, and tori hugger turned on for patient comfort. 16:29:03 Correct patient and procedure confirmed by team. 16:29:04 ECG and BP/O2 sat monitors applied to patient. 16:42:18 Vital chart was started 16:42:20 Baseline sample Acquired. 16:42:31 Rhythm: sinus rhythm 16:42:32 Full Disclosure recording started 16:42:40 H&P Date Dictated: 12/20/2018 Within 30 days and on chart., H&P Addendum completed by physician on day of procedure. (MUST COMPLETE FOR ALL OUTPATIENTS). 16:42:41 Pre-procedure instructions explained to patient. 16:42:42 Pre-op teaching completed and patient verbalized understanding. 16:42:44 Family in patients room. 16:42:45 Patient NPO since Midnight. 16:42:52 Is the patient allergic to Iodine/contrast media? No. 16:42:55 Is patient on blood thinner?No 16:43:21 Patient diabetic? Yes. 16:43:48 If diabetic: On Metformin? Yes 16:43:50 Previous problem with sedation/anesthesia? No ? 16:43:51 Snore? Yes 16:43:52 Sleep apnea? Yes 16:43:53 Deviated septum? No 16:44:02 Opens mouth fully? Yes 16:44:03 Sticks out tongue? Yes 16:44:05 Airway obstruction? No ? 16:44:08 Dentures? No ? 16:44:12 Patient pain scale 0/10 ?. 16:44:17 IV patent on arrival in left forearm with 0.9% NaCl at [facility]. 16:44:19 Lab results completed and on chart. 16:44:23 Left chest area was prepped with dura-prep and draped in sterile fashion 16:44:25 Alarms reviewed by R. N. 16:44:26 Sharps counted by scrub and verified by R.N. 16:44:47 --------ALL STOP TIME OUT------ 16:44:48 Final Timeout: patient, procedure, and site verified with staff and physician. All members of the team are in agreement. 16:44:52 Left chest site verified by team. 16:44:57 Fire Safety Assessment: A--An alcohol-based skin anteseptic being used preoperatively., B--The operative or invasive procedure is being performed above the xiphoid process or in the oropharynx., C--Open oxygen or nitrous oxide is being used. 16:45:02 Physical assessment completed. ASA score P 2 - A patient with mild systemic disease as per Howard Laughlin MD. 16:45:15 Sedation plan: IV Moderate Sedation Medication:Versed, Fentanyl 16:45:34 Pre sharps counted by scrub and verified by RN: Sutures: 7; Sponges: 5; Stick needles: 2; Skin needles: 2; Blade: 1; Cautery: 1 16:45:46 Grounding pad site Left thigh. 16:45:48 Grounding pad site free from injury. 16:45:50 Procedure started. 16:45:59 0.9% NaCl 100 ml/hr I.V. was administered by Jessie Ferreira RN; used for procedure; 16:46:00 Lidocaine 1% was administered to left subclavicular area by Clint Reddy MD . 16:46:08 Oxygen 2 l/min etCO2 Nasal cannula was administered by Jessie Ferreira RN; used for procedure; 16:46:19 Lidocaine 1% 20ml vial x 2 added to field was administered by Clint Reddy MD; for local anesthetic; 16:46:27 Ancef (1Gm/50ml NS) 1 g I.V.P.B was administered by Jessie Ferreira RN; used for procedure; 16:46:34 Ancef Irrigation (1gm/500ml NS) 1 g Topical was administered by Clint Reddy MD; used for procedure; 16:46:45 Versed 2 mg I.V. was administered by Jessie Ferreira RN; for sedation; 16:46:53 Incision made to left subclavicular area. 16:47:01 Fentanyl 100 mcg I.V. was administered by Jessie Ferreira RN; for sedation; 16:48:47 Generator pocket made/opened. 16:49:05 Left subclavian vein accessed with 7Fr Peel Away Sheath. 16:49:08 Left subclavian vein accessed with 7Fr Peel Away Sheath. 16:50:00 Mepilex Dressing ([id number]) opened to sterile field. 16:50:07 Ventricular lead inserted and advanced. 16:50:09 Atrial lead inserted and advanced. 16:50:17 Ventricular lead positioned. 16:50:37 Ventricular lead tested. 16:50:55 Atrial lead positioned. 16:51:01 Atrial lead tested. 16:51:02 Peel-a-way sheath was split and removed. 16:51:02 Peel-a-way sheath was split and removed. 16:53:30 Ventricular lead attachment was completed with 2-0 ticron. 16:53:44 Atrial lead attachment was completed with 2-0 ticron. 16:54:06 PPM Dual was attached to lead(s) and inserted into pocket. 16:55:50 Generator was sutured in place with 2-0 ticron. 16:55:53 Device pocket was irrigated with Ancef. 17:00:18 Subcutaneous closure was completed with 3-0 vicryl. 17:00:26 Parameters-- Generator: Mode: DDDR. Lower Rate: 60bpm. Upper Rate: 120bpm. 17:01:14 Parameters--Ventricular P/R Wave: 9mV. Current: 0.1mA; Threshold: 0.2V; Impedence: 1111OHMS. 17:01:22 Skin closure was completed with 5-0 monocryl. 17:01:30 Lt Chest incision was dressed with Mepilex dressing. 17:01:40 Post sharps counted by scrub and verified by RN: Sutures: 7; Sponges: 5; Stick needles: 2; Skin needles: 2; Blade: 1; Cautery: 1 17:01:45 Procedure ended.(Physican Out) 17:01:58 Fluoroscopy time 01.00 minutes. 17:02:02 Fluoroscopy dose: 37.97 mGy 17:02:02 Flurop Dose total: 37.97 17:02:06 Dose Area Product 502.21 mGy/cm. 17:02:09 Contrast amount:Isovue 300 0ml. 17:02:11 Sharps counted by scrub and verified by R.N. 17:02:13 Insertion/operative site no bleeding no hematoma. 17:02:17 Post-procedure physical assessment completed. ASA score P 2 - A patient with mild systemic disease as per Howard Laughlin MD. 17:02:20 Post procedure rhythm: paced 17:02:23 Estimated blood loss: 5 ml 17:02:38 Post procedure instruction explained to patient.Patient verbalizes understanding. 17:02:39 Patient needs reinforcement of post procedure teaching. 17:02:42 Procedure and supply charges have been captured, reviewed, submitted and are correct. 17:02:44 Procedure Complication : No complications 17:03:14 Vital chart was stopped 17:03:15 See physician's report for complete and final results. 17:03:23 Report given to PCU. 17:03:35 Patient transfered to PCU with Bed. 17:03:42 Procedure ended. 17:03:42 Full Disclosure recording stopped 17:03:49 End room use (Document Last) Device Usage Item Name Manufacture Quantity Catalog Hospital Part [facility] Lot# / Serial# Number Charge Number Stock Stock Code 2-0 Ticron Ethicon 9 [id number] [id number] 5 Multipack ([id number]) 3-0 Vicryl Ethicon 1 [id number] 772954 [id number] 5 Single Pack [id number] 5-0 Monocryl Ethicon 1 [id number] 674180 453439 292034 5 PS2 Y495G Cautery Tip Microtek 1 [id number] 212080 819836 941913 5 NephroGenex Inc[employer] Cautery Microtek 1 [id number] 275625 59029 917081 5 Pushbutton Medical Inc. Pencil Immobilizer Cardinal 1 [id number] 150470 826375 550066 5 Extra Large Health Medtronic Medtronic 1 4074-52 528765 250539 401425 5 [id number] 4074-52 PPM EXP: Lead 06/03/2020 [id number] Medtronic Medtronic 1 4574-45 555690 988603 046603 5 [id number] 4574-45 PPM EXP:02/24/2020 Lead [id number] Medtronic Medtronic 1 [id number] 326872 [id number] [id number] [address] Generator [id number] Mepilex Cardinal 1 197017 602795 906169 107613 5 Dressing Health (932858) Signature Audit [place] Stage Time Signature Unsigned Intra-Procedure 12/21/2018 Richard Castellanos 5:04:48 PM RT(R) Signatures Monitor : Richard Castellanos RT Signature : Date : Time : Nurse : Jessie Ferreira RN Signature : Date : Time : Performing Physician : Signature : Howard Laughlin MD Date : Time : [place] [address] [place] [address]
[2018-12-20] MEDS ORDERED: LIPITOR10 MG PO (11:15)
[2018-12-20] MEDS ORDERED: LISINOPRIL2.5 MG PO (11:15)
[2018-12-20] MEDS ORDERED: BETAPACE 80 MG80 MG PO (11:16)
[2018-12-20] MEDS ORDERED: GLUCOPHAGE500 MG PO (11:16)
[2018-12-20 11:30] VITALS: BP 151/76; BMI 28.0
[2018-12-20 11:48] LABS: BASOPHILS 0.9 % (0-2); EOSINOPHILS 1.6 % (0-7); HEMATOCRIT 42.2 % (42.0-54.0); HEMOGLOBIN 14.6 g/dL (13.5-17.5); IMMATURE GRANULOCYTES 0.2 % (0-5); LYMPHOCYTES 15.7 % (15-50); MCH 31.1 pg (26.0-34.0); MCHC 34.6 g/dL (31.0-37.0); MEAN PLATELET VOLUME 9.1 fL (7.4-10.4); MONOCYTES 15.6 % (2-11); PLATELET COUNT 250 10x3/uL (130-400); RBC 4.69 10x6/uL (4.20-6.10); RDW 12.9 % (11.5-14.5); WBC 6.4 10x3/uL (4.8-10.8)
[2018-12-20 11:54] LABS: ANION GAP 12.7 mmol/L (8-16); CALCIUM 9.6 mg/dL (8.5-10.1); CARBON DIOXIDE 26.7 mmol/L (21.0-32.0); CREATININE - SERUM 1.1 mg/dL (0.6-1.3); POTASSIUM - SERUM 4.4 mmol/L (3.5-5.1)
[2018-12-20 12:00] LABS: INR 1.26 (0.85-1.17); PROTIME 15.3 SECONDS (11.6-15.0)
--- NOTE | 2018-12-20 13:15 | NUR ---
PT RECEIVED VIA STRETCHER FROM [facility] [employer] POST SUCCESSFUL CARDIOVERSION. PT'S HR DROPPED AFTER PROCEDURE TO THE 30-40'S. ON ARRIVAL HR 38, BP 100/55, O2 SAT 97, PLACED ON 02 AT 2L/NC. PT DENIES PAIN OR DISCOMFORT. SLIGHT REDNESS NOTED ON UPPER CHEST FROM CARDIOVERSION. IV PATENT INFUSING VIA L ARM PER ORDERS. CALL LIGHT IN REACH, AT BS.
--- NOTE | 2018-12-20 13:30 | NUR ---
HR REMAINS SINUS FEDE, RATE 37. BP 106/61, RR 10. PT TOLERATING PO FLUIDS. CALL LIGHT IN REACH, REMAINS AT BEDSIDE
--- NOTE | 2018-12-20 14:05 | NUR ---
HR 37, BP 108/57. DR MAR AT , DISCUSSING PLAN OF CARE. ORDERS REC'D FOR ADMIT OVERNIGHT TO MONITOR HR. PT DENIES PAIN OR DISCOMFORT, WILL CALL FOR INPATIENT BED.
--- NOTE | 2018-12-20 14:55 | NUR ---
IV SALINE LOCKED FOR TRANSFER TO [facility] 2. MONITORS REMOVED. WILL TRANSFER TO ROOM 2121.
--- NOTE | 2018-12-20 15:08 | NUR ---
REPORT CALLED TO [place] GARCIA 2. PT TRANSFERED VIA WITH ALL BELONGINGS.
--- NOTE | 2018-12-20 15:42 | NUR ---
RECIEVED FROM [employer]AN[employer] COUNTER[employer] INSTALLER RECOVERY. TELEMERTY SHOWS SB 41. ALERT AND ORIENTED. LEFT FA SL. UP AB MATT. DENIES ANY NEEDS. SR UP WITH CALL LIGHT IN REACH. WILL MONITOR.
[2018-12-20 16:41] VITALS: BP 121/64; Ht 177.8 cm; Wt 88.6 kg
--- NOTE | 2018-12-20 18:07 | NUR ---
LYING QUIETLY WITH HOB UP. DENIES ANY NEEDS. TELEMERTY SHOWS SB AT 48
[2018-12-20 20:00] VITALS: BP 117/67
[2018-12-21] VITALS: BP 114/62
--- NOTE | 2018-12-21 00:03 | NUR ---
NOTIFIED BY MT THAT PT HAS CONVERTED TO FLUTTER WITH AT RATE OF 60.
--- NOTE | 2018-12-21 01:10 | NUR ---
RESTING WITH EYES CLOSED, RESPERATIONS EVEN, NO S/S DISTRESS NOTED.
--- NOTE | 2018-12-21 03:22 | NUR ---
I have reviewed this patient and I concur with the Shift Assessment completed by the Licensed Practical Nurse today this shift.
[2018-12-21 04:00] VITALS: BP 170/69
[2018-12-21 08:39] VITALS: BP 123/78
[2018-12-21 11:34] VITALS: BP 131/80
--- NOTE | 2018-12-21 14:21 | NUR ---
I have reviewed this patient and I concur with the Shift Assessment completed by the Licensed Practical Nurse today this shift.
[2018-12-21 15:42] VITALS: BP 137/83
--- NOTE | 2018-12-21 18:18 | NUR ---
BACK FROM PACER PLACEMENT. PACEMAKER TO LEFT CHEST WITH DRSG DRY AND INTACT.. TELEMERTY SHOWS SR 70. DENIES ANY NEEDS, SR UP WITH CALL LIGHT IN EASY REACH.
[2018-12-21 21:01] VITALS: BP 131/81
--- NOTE | 2018-12-21 21:13 | NUR ---
HS MEDS GIVEN WITH FRESH ICE WATER. DRSG TO UPPER LEFT CHEST C/D/I. PT DENIES PAIN OR NEEDS, BED LOW, CL IN REACH.
[2018-12-22] VITALS: BP 117/77
[2018-12-22 04:00] VITALS: BP 137/83
--- NOTE | 2018-12-22 07:56 | NUR ---
ASSESSMENT DONE. DENIES NEEDS
[2018-12-22 08:00] VITALS: BP 144/79
--- NOTE | 2018-12-22 09:44 | NUR ---
I have reviewed this patient and I concur with the Shift Assessment completed by the Licensed Practical Nurse today this shift.
--- NOTE | 2018-12-22 10:45 | NUR ---
DC GIVEN TO PT
--- NOTE | 2018-12-22 10:52 | NUR ---
DC HOME PER PERSONAL CAR
--- NOTE | 2018-12-22 13:57 | MORECARE ---
CASE MANAGEMENT DISCHARGE SUMMARY PATIENT: ESTHER BRANHAM UNIT: [id number] ADM DATE: 12/20/18 AGE: 78 : 41 SEX: M ROOM/BED: D.2121 AUTHOR: WHIT MCGOVERN PHYSICIAN: REFERRING PHYSICIAN: ZEHRA MAR M.D. DATE OF SERVICE: 12/22/18 Discharge Plan Patient Name: ESTHER BRANHAM [facility] [facility] 1940 Planned Disposition: Home Anticipated Discharge Date: 12/22/18 Discharge Date: 12/22/2018 Expected LOS: 2 Initial Reviewer: [email or web address] Initial Review Date: 12/22/2018 Generated: 12/22/18 2:57 pm Coverage Notice Reviewer: [email or web address] - Josiah Schwartz Notice Issued Date-Time: 12/22/2018 8:45 Notice Type: IM Discharge Notice Notice Delivered To: Patient Relationship to Patient: Manager Data Warehousing Name: Delivery Method: HAND - Hand Delivered Sandra Days: Prior Verbal Notification: Recipient Understood Notice: Yes Recipient Signature: Yes Med Rec Note Co-signed by Attending: Coverage Notice Comment: Patient Name: ESTHER BARNHAM Page 42210 at 1357 All edits/amendments must be made on the electronic document DICTATION DATE: 12/22/18 1357 OFFICE PROFESSIONALS: ABBY 12/22/18 1357 RPT#: [id number] DC DATE:12/22/18 STATUS: DIS IN [place] [id number] [place] [address] END OF REPORT
--- NOTE | 2018-12-22 14:12 | MORECARE ---
CASE MANAGEMENT DISCHARGE SUMMARY PATIENT: ESTHER BRANHAM UNIT: [id number] ADM DATE: 12/20/18 AGE: 78 : 41 SEX: M ROOM/BED: D.9850 AUTHOR: FROILAN,DOC PHYSICIAN: REFERRING PHYSICIAN: ZEHRA MAR M.D. DATE OF SERVICE: 12/22/18 Discharge Plan Patient Name: ESTHER BRANHAM [facility]:[place] : 1940 Planned Disposition: Home Anticipated Discharge Date: 12/22/18 Discharge Date: 12/22/2018 Expected LOS: 2 Initial Reviewer: [email or web address] Initial Review Date: 12/22/2018 Generated: 12/22/18 3:11 pm Comments DCP- Discharge Planning Updated by [email or web address]: Josiah Schwartz on 12/22/18 1:[address] Patient Name: ESTHER BRANHAM Admission Status: Elective Accout number: [id number] Admission Date: 12-20-2018 : 1940 Admission Diagnosis:UNSPECIFIED ATRIAL FIBRILLATION Attending: ZEHRA MAR Current LOS: 2 Anticipated DC Date: 12-22-2018 Planned Disposition: Home Primary Insurance: MEDICARE A & B Discharge Planning Comments: CM MET WITH PT IN ROOM TO DISCUSS DISCHARGE PLANNING AND NEEDS. PT REPORTS LIVING AT HOME INDEPENDENTLY WITH SPOUSE. PT HAS CPAP FROM [facility] [place]. PT HAS NO OUTSIDE SERVICES ASSISTING IN THE HOME. CM DISCUSSED AVAILABILITY OF HOME HEALTH, REHAB SERVICES AND MEDICAL EQUIPMENT. PT DENIES DISCHARGE NEEDS, REPORTS HIS WILL PICK HIM UP FOR DISCHARGE HOME. IMPORTANT MESSAGE FROM MEDICARE PROVIDED AND EXPLAINED. GOVERNMENT CLERK NURSE NOTIFIED. Knot Cutter: Josiah Schwartz DCPIA - Discharge Planning Initial Assessment Updated by [email or web address]: Josiah Schwartz on 12/22/18 2:08 pm * Is the patient Alert and Oriented? Yes * How many steps to enter\exit or inside your home? NONE * PCP DR. CARTER ANTON AT [place], [place] * Pharmacy [facility] * Preadmission Environment Home with Family * ADLs Independent * Equipment CPAP * Other Equipment [facility] - PROVIDER * List name and contact numbers for known caregivers / representatives who currently or will assist patient after discharge: CHIOMA BRANHAM, SPOUSE, * Verbal permission to speak to the caregivers and representatives has been obtained from the patient. N/A * Community resources currently utilized None * Please name any agencies selected above. NONE * Additional services required to return to the preadmission environment? No * Can the patient safely return to the preadmission environment? Yes * Has this patient been hospitalized within the prior 30 days at any hospital? No Coverage Notice Reviewer: [email or web address] Anastasiia Schwartz Notice Issued Date-Time: 12/22/2018 8:45 Notice Type: IM Discharge Notice Notice Delivered To: Patient Relationship to Patient: Chief Operating Officer Name: Delivery Method: HAND - Hand Delivered Sandra Days: Prior Verbal Notification: Recipient Understood Notice: Yes Recipient Signature: Yes Med Rec Note Co-signed by Attending: Coverage Notice Comment: Last DP export: 12/22/18 12:57 p Patient Name: ESTHER BRANHAM Page [id number] at 1412 All edits/amendments must be made on the electronic document DICTATION DATE: 12/22/181410 FILENET DEVELOPER: ABBY 12/22/18 141 RPT#: [id number] DC DATE:12/22/18 STATUS: DIS IN [facility] [address] [place] [address] END OF REPORT
--- NOTE | 2018-12-23 13:23 | OP ---
PATIENT NAME: ESTHER BRANHAM MEDICAL RECORD: [id number] :41 LOCATION:D. D.1 ADMISSION DATE:12/20/18 SURGEON: CLINT AMES MD DATE OF OPERATION: 12/21/2018 PREOPERATIVE DIAGNOSIS: Sick sinus syndrome with pauses. POSTOPERATIVE DIAGNOSIS: Sick sinus syndrome with pauses: PROCEDURES: 1. Left subclavian vein dual-lead pacemaker placement. 2. Fluoroscopic interpretation. SURGEON: Clint Ames MD REPORT OF PROCEDURE: The patient's left chest was prepped and draped in sterile fashion. A total of 20 mL of 1% lidocaine with epinephrine was infused into the surrounding tissues. A transverse incision was made on the left superolateral chest and a subcutaneous pouch was made over the pectoral fascia. A needle was used to cannulate the left subclavian vein and guidewires were advanced times 2. Fluoro was used to note that the wires were in good position in the venous system. Dilator trocar device were placed over the wires and the wires and dilators were removed. The leads were advanced into the superior vena cava and at this point, Dr. Gonzalez positioned the leads appropriately in the atrium and ventricle. Once the leads were noted to be in good position and they were sutured into place with 0 Ti-Cron, the leads were then affixed to the pacemaker, which was placed into the subcutaneous pouch and sutured to the pectoral fascia using a single interrupted 0 Ti-Cron. We irrigated the wound with antibiotic solution and then closed the subcutaneous tissues with interrupted 3-0 Vicryl. The skin was closed with running subcutaneous 5-0 Monocryl and dressed appropriately. COMPLICATIONS: None. CONDITION: Stable. ANESTHESIA: Local MAC. BLOOD LOSS: Minimal. TRANSINT:[id number] Voice Confirmation ID: [id number] DOCUMENT ID: [id number] CLINT AMES MD at 1323 CC: [id number] DICTATION DATE: 12/21/181701 LITERATURE PROFESSOR: 12/21/182020 DIS IN 12/22/18 [facility] [address] [place] [address]
--- NOTE | 2018-12-23 14:29 | OP ---
PATIENT NAME: ESTHER BRANHAM MEDICAL RECORD: [id number] :41 LOCATION:D.M2 D.2121 ADMISSION DATE:12/20/18 SURGEON: STACIE SOUZA MD DATE OF OPERATION: 12/20/2018 PROCEDURE: Lead portion of permanent pacer placement. INDICATION: Sick sinus syndrome with pauses. SURGEON: Clint Reddy MD DESCRIPTION OF PROCEDURE: After left subclavian was cannulated via modified Seldinger technique via Dr. Reddy, first under fluoroscopic guidance, we placed the RV lead in the RV apex without difficulty. After adequate R waves and thresholds were obtained, we then placed the right atrial lead in the right atrial appendage without difficulty. After adequate impedance and fib waves were obtained, leads were attached to appropriate poles of the generator and pocket was closed via Dr. Reddy. IMPRESSION: Successful lead portion for a pacemaker placement. ESTIMATED BLOOD LOSS: Minimal. COMPLICATIONS: None. DISPOSITION: To the floor, stable. TRANSINT:[id number] Voice Confirmation ID: [id number] DOCUMENT ID: [id number] STACIE SOUZA MD at 1429 CC: [id number] DICTATION DATE: 12/21/18 170 SALESPERSON PARTS: 12/21/182014 DIS IN 12/22/18 [facility] [address] [place] [address]
== END 2018-12-22 10:52 | disposition home or self-care (01) | DRG 244 ==
LOC: D.CATH 10:56 → D.M2 10:56 → D.CATH 13:00 → D.M2 15:10 → D.CATH 15:11 → D.M2 12-22 10:52
PROVIDERS: Internal Medicine Interventional Cardiology; ADMIT Internal Medicine Cardiovascular Disease; ATTEND Internal Medicine Cardiovascular Disease
PROC: 02HK3JZ Insertion of Pacemaker Lead into Right Ventricle, Percutaneous Approach (ICD-10-PCS; 2018-12-21)
PROC: 02H63JZ Insertion of Pacemaker Lead into Right Atrium, Percutaneous Approach (ICD-10-PCS; 2018-12-21)
PROC: 0JH606Z Insertion of Pacemaker, Dual Chamber into Chest Subcutaneous Tissue and Fascia, Open Approach (ICD-10-PCS; principal; 2018-12-21 14:00)
DX: I49.5 Sick sinus syndrome (principal); I48.91 Unspecified atrial fibrillation

== ENCOUNTER → 2020-10-02 12:59 | Outpatient (CLI) | payer MEDICARE, OTHER ==
[2018-12-20 16:41] VITALS: BMI 28.0
[~2020-10-02 12:59] MED LIST changes: +BETAPACE 80 MG80 MG PO; +GLUCOPHAGE500 MG PO; +LIPITOR10 MG PO; +LISINOPRIL2.5 MG PO
== END | disposition home or self-care (01) ==
LOC: D.MRI 12:59
PROVIDERS: ATTEND Internal Medicine Cardiovascular Disease
DX: I25.10 Atherosclerotic heart disease of native coronary artery without angina pectoris (principal); Z95.5 Presence of coronary angioplasty implant and graft; I48.91 Unspecified atrial fibrillation; I10 Essential (primary) hypertension; R06.09 Other forms of dyspnea